=== PATIENT | male | born 1970 | race Two or more races ===

== ENCOUNTER 2017-01-15 10:13 | Emergency (ER) | payer MEDICAID ==
[~2017-01-15] VITALS: Ht 182.9 cm; Wt 87.5 kg
[2017-01-15 10:39] VITALS: BP 117/76
== END 2017-01-15 11:00 | disposition home or self-care (01) ==
LOC: ER 10:13
DX: J45.909 Unspecified asthma, uncomplicated (principal)
CPT/HCPCS: 93005

== ENCOUNTER 2018-09-16 15:27 | Emergency (ER) | payer MEDICAID, OTHER ==
[~2018-09-16] VITALS: Ht 185.4 cm; Wt 90.7 kg
[2018-09-16 18:00] LABS: Basophils # (auto) 0.1 uL; Basophils % (auto) 0.9 % (0.0-2.0); Eosinophils # (auto) 0.2 uL; Hematocrit 50.5 % (41.0-53.0); Hemoglobin 16.7 g/dL (13.5-17.5); Lymphocytes # (auto) 2.4 uL; Mean Corpuscular Hemoglobin 28.3 pg (28.0-32.0); Mean Corpuscular Hgb Conc. 33.1 g/dL (32.0-36.0); Mean Corpuscular Volume 85.4 fL (80.0-100.0); Monocytes # (auto) 0.6 uL; Monocytes % (auto) 9.4 % (0.0-12.0); Neutrophils # (auto) 2.9 uL; Neutrophils % (auto) 47.7 % (37.0-80.0); Nucleated Red Blood Cells % 0.2 %; Platelet Count (auto) 147 10^3/uL (140-450); Red Blood Cells 5.91 10^6/uL (4.5-5.90); Red Cell Distribution Width 13.5 % (11.8-14.3)
[2018-09-16 18:18] LABS: Albumin 4.1 g/dL (3.4-5.0); Calcium 9.1 mg/dL (8.5-10.1); Magnesium 2.7 mg/dL (1.6-2.6); Potassium 4.2 mmol/L (3.5-5.1)
[2018-09-16 18:20] LABS: BUN/Creatinine Ratio 18.2
[2018-09-16 18:23] LABS: Bilirubin, Total 0.6 mg/dL (0.2-1.0); Total Protein 7.9 g/dL (6.4-8.2)
[2018-09-17] MEDS ORDERED: methylPREDNISolone SOD SUCC 125 MG/2 ML VL IM ONE (01:45)
[2018-09-17 02:15] VITALS: BP 122/85
== END 2018-09-17 03:02 | disposition home or self-care (01) ==
LOC: ER 15:31
DX: J45.901 Unspecified asthma with (acute) exacerbation (principal)
CPT/HCPCS: 36415; 71046; 80053; 83735; 85025; 96372; 99284; J2930